=== PATIENT | male | born 1945 | race Caucasian/White ===

== ENCOUNTER 2016-10-11 11:04 | Emergency (ER) | payer MEDICARE, OTHER ==
[2016-10-11] MEDS ORDERED: 0.9 % SODIUM CHLORIDE 1,000 ML IV SCH (11:30)
[2016-10-11 11:36] LABS: BASOPHILS % 0.3 (0.0-1.5); EOSINOPHILS % 2.1 % (0.0-6.8); MEAN CORPUSCULAR HEMOGLOBIN 27.2 pg (28.0-34.0); MEAN CORPUSCULAR VOLUME 85.6 fl (80.0-100.0); MONOCYTES % 6.5 % (0.0-11.0); NEUTROPHILS # 2.8 # k/uL (1.4-7.7)
[2016-10-11 11:45] LABS: eGFR (African) > 60; eGFR (Non-African) 58
[2016-10-11 13:31] LABS: APPEARANCE,URINE Clear (CLEAR); COLOR,URINE Yellow (YELLOW); OCCULT BLOOD,URINE Negative (NEGATIVE)
[2016-10-11 13:33] LABS: AMPHETAMINE NEGATIVE ng/mL (<1000); BARBITURATES NEGATIVE ng/mL (<300); CANNABINOIDS NEGATIVE ng/mL (<50); COCAINE NEGATIVE ng/mL (<150); METHAMPHETAMINE NEGATIVE ng/mL (<1000); METHYLENEDIOXYMETHAMPHETAMINE NEGATIVE ng/mL (<500)
--- NOTE | 2016-10-11 14:15 | ED Physician Documentation ---
Syncope/Near Syncope - HISTORIAN Historian: patient - HPI Stated Complaint: passed out Chief Complaint: Syncope Additional Information: Got up from seated position to go to a slot machine, felt weak and passed out. No head injury. No chest pain or headache. Took all his meds today and has not eaten since last night. Witnessed: Yes Witnessed By: bystander Position at Time of Episode: standing Activity at Time of Episode: walking Symptoms Prior to Episode: light-headed Character of Events(s): lost consciousness, collapsed Duration of Loss of Consciousness: momentary Last known Well Date: 10/11/16 Last Known Well Time: 10:30 Last known Well Code/Unknown Code: Unknown Symptoms after Event: denies: confused after event, incontinent of urine, incontinent of stool, breathing shallow, breathing stopped, lost pulse, dextrostick low [employer], given D50 [employer] Location of Injury: none Associated Symptoms: feels back to normal Further Comments: no - ROS CONST: denies: recent illness EYES/ENT: none GI/: denies: diarrhea, black stools, problems urinating MS/SKIN/LYMPH: denies: joint pain, leg swelling, rash, swollen glands, ankle swelling NEURO/PSYCH: denies: confusion, anxiety, depression - PAST HX Cardiac Disease: other (htn) PE Risk Factors: hypertension, other (hyperlipidemia) Other History: diabetes Type 2, Other (bipolar disorder) Surgeries/Procedures: none Immunizations: referred to PCP Allergies/Adverse Reactions: Allergies Allergy/AdvReac Type Severity Reaction Status Date / Time No Known Allergies Allergy Verified 10/11/16 11:11 Home Medications: Ambulatory Orders Medication Instructions Recorded Aripiprazole [Abilify] 7.5 mg PO QDAY 10/11/16 Aspirin EC [Ecotrin] 81 mg PO DAILY 10/11/16 Atorvastatin Calcium [Lipitor] 80 mg PO HS 10/11/16 Carboxymethylcellulos/Glycerin 15 ml OP 10/11/16 [Lubricant 0.5-0.9% Eye Drops] Gabapentin [Neurontin] 800 mg PO 10/11/16 Hydralazine HCl [Apresoline] 25 mg PO TID 10/11/16 Insulin Aspart [Novolog Flexpen] 25 unit SQ AC15 10/11/16 Lisinopril [Zestril] 40 mg PO 10/11/16 Loratadine [Claritin] 10 mg PO 10/11/16 Metoprolol Tartrate [Lopressor] 25 mg PO BID 10/11/16 Omeprazole [Prilosec] 20 mg PO BID 10/11/16 Prazosin HCl [Minipress] 6 mg PO HS 10/11/16 Saxagliptin HCl [Onglyza] 5 mg PO QDAY 10/11/16 Sertraline HCl [Zoloft] 200 mg PO DAILY 10/11/16 Trazodone HCl [Desyrel] 100 mg PO 10/11/16 - SOCIAL HX Smoking History: cigarettes Alcohol Use: none Drug Use: none - FAMILY HX Family History: none - VITAL SIGNS Vital Signs: Vital Signs Temp Pulse Resp BP Pulse Ox 98.7 F 57 L 18 104/56 95 10/11/16 11:07 10/11/16 11:12 10/11/16 11:07 10/11/16 11:07 10/11/16 13:12 - REVIEWED ASSESSMENTS Nursing Assessment Reviewed: Yes Vitals Reviewed: Yes Progress - Results/Orders Results/Orders: ct head, cxr, ekg, bnp, cmp, trop, ua, uds, etoh ordered in er - Progress Progress: pt. given 1 liter ns, bp normalized, feels improved Critical Care Note - Critical Care Note Total Time (mins): 0 ED Results Lab/Radiology - Lab Results Lab Results: Lab Results 10/11/16 10/11/16 10/11/16 13:25 13:25 11:15 WBC RBC Hgb Hct MCV MCH MCHC RDW Plt Count Neut % (Auto) Lymph % (Auto) [place] % (Auto) Eos % (Auto) Baso % (Auto) Neut # Lymph # [place] # Eos # Baso # Reactive Lymphs % Reactive Lymphs # PT INR APTT Sodium Potassium Chloride Carbon Dioxide BUN Creatinine Estimated Creat Clear Est GFR ( Amer) Est GFR (Non-Af Amer) Glucose Calcium Total Bilirubin AST ALT Alkaline Phosphatase Troponin I < 0.03 ng/mL L ng/mL (0.03-0.06) NT-Pro-B Natriuret Pep 255.0 pg/mL H pg/mL (15.0-125.0) Total Protein Albumin Amylase Urine Color Yellow (YELLOW) Urine Appearance Clear (CLEAR) Urine pH 6.0 (5.0 - 8.0) Ur Specific [place] 1.010 (1.010-1.030) Urine Protein Trace mg/dL mg/dL (NEGATIVE) Urine Ketones Trace mg/dL mg/dL (NEGATIVE) Urine Occult Blood Negative (NEGATIVE) Urine Nitrite Negative (NEGATIVE) Urine Bilirubin Negative (NEGATIVE) Urine Urobilinogen 1.0 Eu Eu (0.2-1.0) Ur Leukocyte Esterase Negative (NEGATIVE) Urine Glucose 3+ mg/dL H mg/dL (NEGATIVE) Opiates Screen Negative (2000 ng/mL) Oxycodone Screen Negative ng/mL ng/mL (<100) Methadone Screen Negative ng/mL ng/mL (<300) POC Urine Barbiturates Negative ng/mL ng/mL (<300) Amphetamines Screen Negative ng/mL ng/mL (<1000) POC Ur Methamphetamine Negative ng/mL ng/mL (<1000) MDMA Negative ng/mL ng/mL (<500) Benzodiazepines Screen Negative ng/mL ng/mL (<300) Cocaine Screen Negative ng/mL ng/mL (<150) Marijuana (THC) Screen Negative ng/mL ng/mL (<50) Ethyl Alcohol 10/11/16 10/11/16 10/11/16 11:15 11:15 11:15 WBC 4.30 K/ul K/ul (4.00-12.00) RBC 4.38 M/ul M/ul (3.90-5.20) Hgb 11.9 g/dL L g/dL (12.0-18.0) Hct 37.5 % % (37.0-53.0) MCV 85.6 fl fl (80.0-100.0) MCH 27.2 pg L pg (28.0-34.0) MCHC 31.8 g/dL g/dL (30.0-36.0) RDW 14.9 % H % (11.3-14.3) Plt Count 82 K/mm3 L K/mm3 (130-400) Neut % (Auto) 65.5 % % (39.0-79.0) Lymph % (Auto) 24.4 % % (16.0-50.0) [place] % (Auto) 6.5 % % (0.0-11.0) Eos % (Auto) 2.1 % % (0.0-6.8) Baso % (Auto) 0.3 (0.0-1.5) Neut # 2.8 # k/uL # k/uL (1.4-7.7) Lymph # 1.1 # k/uL # k/uL (0.6-4.0) [place] # 0.3 # k/uL # k/uL (0.0-0.9) Eos # 0.1 # k/uL # k/uL (0.0-0.6) Baso # 0.0 # k/uL # k/uL (0.0-0.5) Reactive Lymphs % 1.1 % % (0.0-5.0) Reactive Lymphs # 0.0 # k/uL # k/uL (0.0-0.8) PT 11.2 Seconds Seconds (9.7-11.5) INR 1.1 (0.9-1.1) APTT 23.3 Seconds L Seconds (24.5-32.8) Sodium 136 mmol/L mmol/L (136-145) Potassium 4.0 mmol/L mmol/L (3.5-5.0) Chloride 102 mmol/L mmol/L (98-110) Carbon Dioxide 24 mmol/L mmol/L (20-32) BUN 19 mg/dL mg/dL (10-26) Creatinine 1.3 mg/dL mg/dL (0.4-1.5) Estimated Creat Clear 64 Est GFR ( Amer) > 60 (60 - ) Est GFR (Non-Af Amer) 58 L (60 - ) Glucose 316 mg/dL H mg/dL (70-99) Calcium 9.0 mg/dL mg/dL (8.5-10.5) Total Bilirubin 0.8 mg/dL mg/dL (0.2-1.2) AST 50 U/L H U/L (0-41) ALT 45 U/L U/L (0-45) Alkaline Phosphatase 95 U/L U/L (46-116) Troponin I NT-Pro-B Natriuret Pep Total Protein 7.3 g/dL g/dL (6.0-8.5) Albumin 4.5 g/dL g/dL (3.0-5.5) Amylase 30 U/L U/L (20-104) Urine Color Urine Appearance Urine pH Ur Specific [place] Urine Protein Urine Ketones Urine Occult Blood Urine Nitrite Urine Bilirubin Urine Urobilinogen Ur Leukocyte Esterase Urine Glucose Opiates Screen Oxycodone Screen Methadone Screen POC Urine Barbiturates Amphetamines Screen POC Ur Methamphetamine MDMA Benzodiazepines Screen Cocaine Screen Marijuana (THC) Screen Ethyl Alcohol < 10.0 MG/DL MG/DL (<10.0) - Radiology Radiology Impressions: ct head neg, cxr neg - Orders Orders: ED Orders Category Date Time Status Continuous Pulse Oximetry Q1H Care 10/11/16 11:12 Active Telemetry [Telemetry] NOW Care 10/11/16 11:12 Active CHEST 1 VIEW [RAD] Routine Exams 10/11/[address] BRAIN W/O CONTRAST Stat Exams 10/11/16 Ordered AMYLASE Routine Lab 10/11/16 11:15 Completed CBC/PLATELET/DIFF Routine Lab 10/11/16 11:15 Completed CMP Routine Lab 10/11/16 11:15 Completed DRUG SCREEN URINE MEDICAL ONLY Routine Lab 10/11/16 13:25 Completed ETHANOL MEDICAL USE ONLY Routine Lab 10/11/16 11:15 Completed NT-proBNP Routine Lab 10/11/16 11:15 Completed PT-INR Routine Lab 10/11/16 11:15 Completed PTT Routine Lab 10/11/16 11:15 Completed TROPONIN I (cTnI) Routine Lab 10/11/16 11:15 Completed URINALYSIS Routine Lab 10/11/16 13:25 Completed 0.9 % Sodium Chloride [Normal Saline] 1,000 ml Med 10/11/16 11:30 Ordered IV .Q1H Chem Sticks Med 10/11/16 12:00 Ordered 1 each CHEMQID Oxygen Daily Oxygen 10/11/16 11:15 Ordered EKG WITH COMPARISON Routine Ther 10/11/16 Ordered Syncope Physical Exam - Physical Exam General Appearance: no acute distress, alert EENT: nml eye inspection, PERRL Neck/Back: neck supple, non-tender, no carotid bruit Respiratory: no resp distress, chest non-tender, breath sounds normal CVS: reg rate & rhythm, heart sounds normal, equal pulses, no murmur, no gallop , PMI nml, no JVD, no friction rub Abdomen: non-tender, no organomegaly, nml bowel sounds, no distention Skin: warm/dry, normal color Extremities: non-tender, normal range of motion, no evidence of injury, no edema - Neuro/Psych Higher Functions: alert, oriented x3, no evidence of acute CVA, mood/affect nml , eyes open Cranial Nerves: nml as tested Cerebellar: nml as tested Sensorimotor: nml motor response, nml sensory response, nml reflexes, nml gait Discharge Clincal Impression: Orthostatic hypotension Referrals: Primary Doctor,No [Primary Care Provider] - 2 Days Home Medications: Ambulatory Orders Aripiprazole [Abilify] 7.5 mg PO QDAY 10/11/16 Aspirin EC [Ecotrin] 81 mg PO DAILY 10/11/16 Atorvastatin Calcium [Lipitor] 80 mg PO HS 10/11/16 Carboxymethylcellulos/Glycerin [Lubricant 0.5-0.9% Eye Drops] 15 ml OP 10/11/16 Gabapentin [Neurontin] 800 mg PO 10/11/16 Hydralazine HCl [Apresoline] 25 mg PO TID 10/11/16 Insulin Aspart [Novolog Flexpen] 25 unit SQ AC15 10/11/16 Lisinopril [Zestril] 40 mg PO 10/11/16 Loratadine [Claritin] 10 mg PO 10/11/16 Metoprolol Tartrate [Lopressor] 25 mg PO BID 10/11/16 Omeprazole [Prilosec] 20 mg PO BID 10/11/16 Prazosin HCl [Minipress] 6 mg PO HS 10/11/16 Saxagliptin HCl [Onglyza] 5 mg PO QDAY 10/11/16 Sertraline HCl [Zoloft] 200 mg PO DAILY 10/11/16 Trazodone HCl [Desyrel] 100 mg PO 10/11/16 Comments: Pt. cautioned not to take his medications and not eat Condition: Stable Disposition: 01 HOME, SELF-CARE Decision to Admit: NO Decision Time: 14:15
[2016-10-11 14:55] VITALS: BP 125/70
--- NOTE | 2016-10-11 23:42 | Diagnostic Imaging Report ---
JESSICA GRIGSBY [facility] [place] [facility] [address] [facility] [address] [place], [place]. [address] Report Submission Date: Oct 11, 2016 12:39:08 PM CDT Patient Study Name: PAPI DUBOIS Date: Oct 11, 2016 11:25:52 AM CDT Modality Type: CT\SR Gender: M Description: CT BRAIN W/O CONTRAST : 49 Institution: [facility] [place] [facility] Physician: JESSICA GRIGSBY CT brain noncontrast Date of study: 11 October 2016 CLINICAL HISTORY: CT HEAD W/O, SYNCOPE TODAY, HAS HAD DIZZY SPELLS IN THE PAST (Hx) / SYNCOPE (DICOM Hx) TECHNIQUE: 5 mm contiguous axial images of the brain, noncontrast. FINDINGS: There is no evidence of intracranial mass effect, hemorrhage, or acute hydrocephalus. The lateral ventricles are symmetrical and the 4th ventricle is midline without shift. No acute brain parenchymal changes or extra-axial fluid collections are identified. Cerebral and cerebellar atrophy are present. There is moderate white matter gliosis. An 8 mm right frontal dural base calcification may represent a small meningioma. The calvarium is intact. The mastoid air cells are clear. There is maxillary and ethmoid sinus mucosal thickening. IMPRESSION: No acute intracranial process. Chronic atrophy and white matter gliosis Electronically signed on Oct 11, 2016 12:39:08 PM CDT by: Shreyas SCOTT
--- NOTE | 2016-10-11 23:42 | Diagnostic Imaging Report ---
JESSICA GRIGSBY [facility] [address] [facility].[address] [address] Report Submission Date: Oct 11, 2016 12:44:51 PM CDT Patient Study Name: PAPI DUBOIS Date: Oct 11, 2016 11:30:51 AM CDT Modality Type: CR Gender: M Description: CHEST : 49 Institution: [facility] Physician: JESSICA GRIGSBY Ap portable upright radiographs of the chest Clinical history: Dizzy spells syncope Technique: anterior /posterior portable upright Findings: The lung mir are clear. The heart and mediastinal structures are normal. The bony thorax is unremarkable. No pneumothorax or pleural effusion is seen. Impression: No acute pulmonary disease Electronically signed on Oct 11, 2016 12:44:51 PM CDT by: Shreyas SCOTT
== END 2016-10-11 14:20 | disposition home or self-care (01) ==
LOC: ED 11:04
DX: I95.1 Orthostatic hypotension (principal)
CPT/HCPCS: 36415; 70450; 71010; 80053; 81002; 82150; 83880; 84484; 85025; 85610; 85730; G0480; G0481; 80320; 80377; 96360; 99284